=== PATIENT | male | born 1980 | race Two or more races ===

== ENCOUNTER 2019-11-06 05:11 | Observation (INO) | payer OTHER ==
[~2019-11-06] VITALS: Ht 167.6 cm; Wt 77.1 kg
[2019-11-06] VITALS (14 sets, daily range): BP systolic 99–142; BP diastolic 53–74
[2019-11-06] MEDS ORDERED: D5 1/2NS 1000ml IV ONE (05:12)
[2019-11-06] MEDS ORDERED: Tubing IV Secondary IV ONE (05:12)
[2019-11-06] MEDS ORDERED: NORCO 10-325 T1 EACH ORAL (05:55)
[2019-11-06] MEDS ORDERED: OMEPRAZOLE40 M1 ORAL (05:55)
[2019-11-06] MEDS ORDERED: Milk of Magnesia 30ml Ud ORAL PRN (06:15)
[2019-11-06] MEDS ORDERED: HYDROcodone/Acetamin 10/325 tab ORAL PRN (06:15)
[2019-11-06] MEDS ORDERED: Morphine Sulfate 4mg/ml Inj (IV USE ONLY) IM PRN (06:15)
[2019-11-06] MEDS ORDERED: DiphenhydrAMINE 25mg Tab ORAL PRN (06:15)
[2019-11-06] MEDS ORDERED: HYDROmorphone 1mg/ml Carpuject SUBQ PRN (06:15)
[2019-11-06] MEDS ORDERED: LR 1000ml 1,000 ML IVLG SCH (06:35)
[2019-11-06] MEDS ORDERED: Sodium Chloride 10ml vial INJ ONE (06:38)
[2019-11-06] MEDS ORDERED: Lidocaine 1% MPF 10mg/ml 5ml ONE (06:38)
[2019-11-06] MEDS ORDERED: Dexamethasone 4mg/ml vial ONE (06:38)
--- NOTE | 2019-11-06 06:38 | Anethesia Preoperative Eval ---
Anesthesia Pre-op PMH/ROS General Date of Evaluation: Nov 06, 2019 Time of Evaluation: 07:11 Anesthesiologist: Ashleigh ASA Score: ASA 2 Mallampati Score Class I : Soft palate, uvula, fauces, pillars visible Class II: Soft palate, uvula, fauces visible Class III: Soft palate, base of uvula visible Class IV: Only hard plate visible Mallampati Classification: Class II Surgeon: Juan Diagnosis: Neck Pain Surgical Procedure: ACDF C4-5, C5-6 Anesthesia History: none Family History: no anesthesia problems Allergies: Coded Allergies: No Known Allergies (Unverified , 11/06/19) Medications: see eMAR Patient NPO?: Yes NPO Date: Nov 05, 2019 NPO Time: 1900 Past Medical History Cardiovascular: Reports: HTN Gastrointestinal/Genitourinary: Reports: GERD Anesthesia Pre-op Phys. Exam Physician Exam Last Vital Signs Date Time Temp Pulse Resp B/P (MAP) Pulse Ox O2 Delivery O2 Flow Rate FiO2 11/06/19 06:03 Room Air 11/06/19 05:45 97.3 75 18 142/74 (96) 100 Constitutional: NAD Neurologic: CN 2-12 intact Cardiovascular: RRR Respiratory: CTA Gastrointestinal: S/NT/ND Airway Exam Mallampati Score: Class II MO: full ROM: full Teeth: intact Anesthesia Pre-op A/P Risk Assessment & Plan Assessment: ASA 2 Plan: GA, SED, GlideScope Go Status Change Before Surgery: No Pre-Antibiotics Dru Grams Ancef IV Given Within 1 Hr of Incision: Yes Time Given: 07:34 Christiano Sotelo MD Nov 06, 2019 06:38
[2019-11-06] MEDS ORDERED: fentaNYL 100 mcg/2 mL IV ONE ×2 (06:39→08:46)
[2019-11-06] MEDS ORDERED: Rocuronium Bromide 50mg/5ml Inj IV ONE (06:42)
[2019-11-06] MEDS ORDERED: Ketorolac 30mg Inj IV PRN ×2 (06:45)
[2019-11-06] MEDS ORDERED: HYDROcodone/Acetamin 5/325 tab ORAL PRN (06:45)
[2019-11-06] MEDS ORDERED: oxyCODONE HCL/Acetaminophen 5/325mg ORAL PRN (06:45)
[2019-11-06] MEDS ORDERED: LORazepam Inj 2mg/ml 1ml IV PRN (06:45)
[2019-11-06] MEDS ORDERED: Acetaminophen (Non formulary) 100 ML IV ONE (06:45)
[2019-11-06] MEDS ORDERED: fentaNYL 100 mcg/2 mL IV PRN (06:45)
[2019-11-06] MEDS ORDERED: HYDROcodone/Acetamin 7.5/325 tab ORAL PRN (06:45)
[2019-11-06] MEDS ORDERED: Hydromorphone 0.5mg/0.5ml inj IVP PRN (06:45)
[2019-11-06] MEDS ORDERED: Meperidine 25mg/0.5ml Inj (FOR RIGORS ONLY) IV PRN (06:45)
[2019-11-06] MEDS ORDERED: Atropine Sulfate 0.4mg/ml inj IVP PRN (06:45)
[2019-11-06] MEDS ORDERED: Midazolam 2mg/2ml Inj IVP PRN (06:45)
[2019-11-06] MEDS ORDERED: DiphenhydrAMINE 50mg/ml Inj IVP PRN (06:45)
[2019-11-06] MEDS ORDERED: Bacitracin 50000 Units Vial ONE (06:46)
[2019-11-06] MEDS ORDERED: Thrombin 5000 units TOPIC ONE (06:46)
[2019-11-06] MEDS ORDERED: Gelfoam Size TOPIC ONE (06:46)
[2019-11-06] MEDS ORDERED: ceFAZolin sod 1 GM in NS 55 ML IVPB ONE (07:00)
[2019-11-06] MEDS ORDERED: LR 1000ml ONE (07:00)
[2019-11-06] MEDS ORDERED: Dexamethasone 20mg/5ml IVP ONE (07:00)
[2019-11-06] MEDS ORDERED: Neostigmine 1mg/ml 10ml Inj ONE (07:00)
[2019-11-06] MEDS ORDERED: NS Irrig 1000ml ONE (07:00)
[2019-11-06] MEDS ORDERED: Propofol 1,000mg/ 100ml btl IV ONE (07:00)
[2019-11-06] MEDS ORDERED: Sterile Water Irrig 1000ml IRRIG ONE (07:00)
[2019-11-06] MEDS ORDERED: Ketamine 500mg/10ml vial ONE (07:01)
[2019-11-06] MEDS ORDERED: Lidocaine 1% Plain 30 ml INJ ONE ×2 (07:05→09:04)
--- NOTE | 2019-11-06 07:22 | Pre-Procedure Note/Attestation ---
Pre-Procedure Note/Attestation Complete Prior to Procedure Planned Procedure: not applicable Procedure Narrative: ADCF C4-C5, C5-C6 anterior plate Indications for Procedure Pre-Operative Diagnosis: trauma neck pain radiculopathy neurological deficit Attestation I attest that I discussed the nature of the procedure; its benefits; risks and complications; and alternatives (and the risks and benefits of such alternatives ), prior to the procedure, with the patient (or the patient's legal benefits representative). I attest that, if there was a reasonable possibility of needing a blood transfusion, the patient (or the patient's legal benefits representative) was given the [facility] standardized written summary, pursuant to the Trino Overlea Blood Safety Act ([place] Health and Safety Code # 1645, as amended). I attest that I re-evaluated the patient just prior to the surgery and that there has been no change in the patient's H&P, except as documented below: Cornelius Martinez MD Nov 06, 2019 07:22
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
--- NOTE | 2019-11-06 08:43 | Immediate Post-Op Evaluation ---
Immediate Post-Op Evalulation Immediate Post-Op Evalulation Procedure: ACDF C4-5, C5-6 Date of Evaluation: Nov 06, 2019 Time of Evaluation: 10:57 IV Fluids: 700 LR Blood Products: 0 Estimated Blood Loss: 100 Urinary Output: 0 Blood Pressure Systolic: 99 Blood Pressure Diastolic: 61 Pulse Rate: 67 Respiratory Rate: 16 O2 Sat by Pulse Oximetry: 100 Temperature (Fahrenheit): 97.1 Pain Score (1-10): 2 Nausea: No Vomiting: No Complications 0 Patient Status: awake, reacts, patent, extubated, none Hydration Status: adequate Dru Grams Ancef IV Given Within 1 Hr of Incision: Yes Time Given: 07:34 Christiano Sotelo MD Nov 06, 2019 08:43
[2019-11-06] MEDS ORDERED: Labetalol 5mg/ml 20ml vial IV ONE (08:48)
[2019-11-06] MEDS ORDERED: Glycopyrrolate 0.2mg/ml 1ml Vial ONE (10:09)
--- NOTE | 2019-11-06 12:10 | NUR ---
NURSE NOTES: Patient received from PACU to 312-1 via bed on O2 3LNC, no distress. Patient sleeping, awakens to name. Pain to surgical site 8/10, will review orders and medicate patient. Neck dressing CDI, ice pack in place. Neuros intact, skin warm, hand grasps/pedal pushes equal, strong 5/5, pulses palpable. IVF LR infusing to right hand, will change to order IVF. Bilateral SCDs on. Spouse at bedside. Oriented patient to room and call light. Provided clear liquids diet. Bed in lowest position, call light in reach, will continue to monitor.
[2019-11-06] MEDS ORDERED: D5 1/2NS 1,000 ML IV SCH (12:19)
[2019-11-06] MEDS ORDERED: Naloxone 0.4mg/ml Inj IVP PRN (12:19)
--- NOTE | 2019-11-06 12:30 | NUR ---
NURSE NOTES: IS provided, patient instructed on indication. Instructed patient to perform 10x/hr and splint anterior neck with small towel while using IS, verbalized understanding.
[2019-11-06] MEDS ORDERED: Tamsulosin 0.4mg cap ORAL SCH (14:00)
--- NOTE | 2019-11-06 14:29 | Diagnostic Imaging Report ---
INDICATION: Pain, intraoperative TECHNIQUE: Intraoperative imaging Fluoroscopy time: 15.2 seconds Total dose: 0.56365 mGym2 Total number of images: 4 COMPARISON: None FINDINGS: Intraoperative imaging demonstrates surgical tool projecting anterior to the C4-5 disc. Subsequent images document placement of anterior fusion hardware and disc spacers at C4-5 and C5-6. IMPRESSION: Intraoperative imaging, as described
--- NOTE | 2019-11-06 14:35 | NUR ---
PT EVALUATION NOTE Patient seen for initial evaluation. Patient presents with impaired functional mobility and decreased knowledge of cervical precautions s/p cervical surgery. Patient educated in cervical precautions and log roll technique for in/OOB. Patient able to perform bed mobility and transfers with supervision, no assistive device, using proper log roll technique. Patient able to ambulate 200 ft with supervision, no assistive device. Patient will benefit from skilled inpatient PT intervention to address functional mobility and compliance with cervical precautions. Anticipate discharge home once medically cleared by MD. No DME needs at this time. Addendum: 11/06/19 at 1502 by ELINA STALLINGS PT Amended: Links added.
[2019-11-06] MEDS: Chloraseptic Spray 20mL Bottle ORAL PRN ×2 (15:04→17:17)
[2019-11-06] MEDS ORDERED: ceFAZolin sod 1 GM in D5W 55 ML IV SCH (15:30)
--- NOTE | 2019-11-06 17:30 | Operative Note - Dictated ---
DATE OF OPERATION: 11/06/2019 SURGEON: Cornelius Martinez M.D. CHIEF PILOT: ALEM Hart. ANESTHESIOLOGIST: Christiano Sotelo M.D. ANESTHESIA: General with intubation. ADMITTING/PREOPERATIVE DIAGNOSIS: Posttraumatic herniated nucleus pulposus with discogenic neck pain and radiculopathy, neurologic deficit. POSTOPERATIVE DIAGNOSIS: Posttraumatic herniated nucleus pulposus with discogenic neck pain and radiculopathy, neurologic deficit. OPERATIVE PROCEDURE: 1. Anterior C4-C5, C5-C6 ACDF with anterior internal plate fixation. 2. Placement of osteopromotive material, placement of interbody titanium device with anterior internal fixation not interval to the interbody device. 3. SSEP monitoring. 4. High-powered magnification dissection. ESTIMATED BLOOD LOSS: Less than 50 mL. COMPLICATIONS: None. POSTOPERATIVE CONDITION: Good/stable. SPECIMEN: Disc fragments to pathology. DESCRIPTION OF PROCEDURE: The patient was brought to the operating room and in the supine position, general anesthesia with intubation was undertaken. IV antibiotics and IV Decadron were administered 30 minutes prior to incision time. Cross-table imaging was obtained with markers not penetrating the skin for determination of incision placement. Level was marked. Markers removed. Anterior cervical spine sterilely prepped and draped free in usual sterile fashion. A transverse left incision at the appropriate interval was sharply placed through the dermis and epidermis. Electrocautery dissection was carried through the subcutaneous tissue to the level of the platysmas muscle. It was identified, isolated, and transected in line with the incision. Blunt dissection was carried medial to the left sternocleidomastoid muscle and carotid sheath through the deep cervical pretracheal fascia to the midline between the right and left longus colli muscles. A needle was placed-needle bent at 90 degree angle (so as to avoid penetration greater than 3 mm into the disc space) and a cross-table image was obtained under sterile conditions, interpreted by surgeon demonstrating the correct level for further surgery. Level marked. Longus colli muscles with subperiosteal elevator over the appropriate intervals, retractors placed. C5-C6: Diskectomy was performed to but not through the posterior longitudinal ligament. Endplate denuding of cartilaginous caps with Midas Franklin bur dissection under high-power magnification. Trial utilization demonstrating the correct lordosis and height/width/depth. Titanium implant selected. Packed with autograft local and osteopromotive material. Tamped into position. Excellent alignment positioning by fluoroscopic guidance and direct observation. Attention was turned to the C4-C5 interval where an anterior annulotomy was performed followed diskectomy to but not through the posterior longitudinal ligament. Endplate denuding with Midas [place] bur dissection under high-power magnification. Trials as noted at C5-C6 utilized with appropriate dimensions determined. Graft filled with autograft and osteopromotive material impacted into correct interval. Of note is that the graft insertion devices have stops to avoid penetration past the anterior vertebral body cortical wall. Fluoroscopic imaging demonstrating excellent alignment in the AP and lateral planes. A 10 pounds of traction removed on the neck. Anterior internal plate fixation undertaken with bilateral screws C4, C5, and C6 in compressive fashion. Locked into position. AP and lateral fluoroscopic images undertaken and printed demonstrating excellent alignment position and correct levels. The patient is stable at all times. Wound irrigated with antibiotic-containing saline. Observation revealed no obvious excoriation or laceration of vital structures. FloSeal applied. Reapproximation of platysmas muscle, subcutaneous reapproximation of dermis and epidermis followed by surgical strips and sterile bandage maintained in place with tape. The patient was awakened and extubated in the operating room, and transported to postop recovery in good stable condition. Cornelius Martinez M.D. DR: JINA JOB#: [id number] CC:
--- NOTE | 2019-11-06 18:30 | NUR ---
NURSE NOTES: Discharge instructions reviewed with patient and spouse, verbalized understanding. IV heplock discontinued, no active bleeding. All belongings sent with patient. Anterior neck dressing remains CDI. Tolerated soft, regular diet, fair, no NV. Patient already has his pain medication filled at home. Patient sent down via WC with RN, in stable condition. Discharged home at 1830.
[2019-11-07 09:10] VITALS: BP 99/53
--- NOTE | 2019-11-07 09:10 | 48 Hour Post Anesthesia Eval ---
Post Anesthesia Evaluation Procedure: ACDF C4-5, C5-6 Date of Evaluation: Nov 06, 2019 Time of Evaluation: 14:30 Blood Pressure Systolic: 99 0: 53 Pulse Rate: 69 Respiratory Rate: 16 Temperature (Fahrenheit): 97.8 O2 Sat by Pulse Oximetry: 98 Airway: patent Nausea: No Vomiting: No Pain Intensity: 2 Hydration Status: adequate Cardiopulmonary Status: Stable Mental Status/LOC: patient returned to baseline Follow-up Care/Observations: 0 Post-Anesthesia Complications: 0 Follow-up care needed: ready to discharge Christiano Sotelo MD Nov 07, 2019 09:10
--- NOTE | 2019-11-08 17:05 | Brief Operative Note ---
Immediate Post Operative Note Operative Note Pre-op Diagnosis: trauma neck pain radiculopathy neurological deficit Procedure: ACDF C4-C5, C5-C6 Anterior plate fixation C4-5-6 SSEP High powered magnification disection Interbody Titanium Device Placement Interbody Bioactive material placement Post-op Diagnosis: same as pre-op Findings: consistent w/pre-op dx studies, other Surgeon: Juan Ph.D., M.D. Operational Risk Analyst: Tiffanie FERRARA Anesthesiologist: Ashleigh BURRIS Anesthesia: general Specimen: yes Complications: none Condition: stable Fluids: anesthesia Estimated Blood Loss: minimal Drains: none Implant(s) used?: Yes Cornelius Martinez MD Nov 08, 2019 17:05
--- NOTE | 2019-11-18 14:13 | Discharge Summary ---
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 Reason for Hospitalization: elective surgery HPI Daija Bradford is a 39 year old male who was admitted on Nov 06, 2019 at 05:12 for Discogenic Neck Pain Consultations Dr Moreno -pain specialist Procedures s/p 11/06/[address] Martinez 1. Anterior C4-C5, C5-C6 ACDF with anterior internal plate fixation. 2. Placement of osteopromotive material, placement of interbody titanium device with anterior internal fixation not interval to the interbody device. 3. SSEP monitoring. 4. High-powered magnification dissection. Hospital Course status post surgery course of recovery uneventful initially IV fluids s/p perioperative antibiotics neurovascular status closely monitored, remained stable incision with dressing ; clean dry and intact pain management was addressed pain specialist followed; pain was controlled remained hemodynamically stable ambulated with PT fall precautions maintained; safe for ambulation DVT prophylaxis provided use of incentive spirometry was encouraged while in the bed slowly started on soft diet Chloraseptic spray was on board a needed for throat discomfort able to tolerate soft diet , IV fluids discontinued GI prophylaxis provided antiemetics were on board as needed voided freely bowel regimen instituted patient was stable for discharge discharge instructions provided follow up with surgeon in the office as advised by surgeon FINAL DIAGNOSES Posttraumatic herniated nucleus pulposus with discogenic neck pain and radiculopathy, neurologic defici s/p Anterior C4-C5, C5-C6 ACDF with anterior internal plate fixation. Placement of osteopromotive material, placement of interbody titanium device with anterior internal fixation not interval to the interbody device. SSEP monitoring. High-powered magnification dissection. Discharge Medications Continued Medications: Hydrocodone Bit/Acetaminophen 10-325* ([place] 10-325*) 1 Each Tablet 1 TAB ORAL Q6H PRN for For Pain, #10 TAB 0 Refills (This prescription has been renewed) PRN PAIN Omeprazole (Omeprazole) 40 Mg Capsule. 40 MG ORAL DAILY for gerd, CAP (This prescription has been renewed) Discharge Condition Upon Discharge: stable Discharge Disposition Patient was discharged home Discharge Instructions Discharge Instructions Special Instructions I have been assigned to complete a D/C Summary on this account. I was not involved in the patient management Alyssia Allison ASSISTANT WRESTLING COACH Nov 18, 2019 14:13
== END 2019-11-06 18:30 | disposition home or self-care (01) ==
LOC: SUR 05:11 → EDBD 05:11 → 3E 05:12 → SUR 18:30
DX: M50.120 Mid-cervical disc disorder, unspecified level (principal); E66.3 Overweight; Z68.27 Body mass index [BMI] 27.0-27.9, adult; K21.9 Gastro-esophageal reflux disease without esophagitis; I10 Essential (primary) hypertension
CPT/HCPCS: 22554; 22585; 36415; 72040; 76000; 86850; 86900; 86901; 96360; 96365; 96372; 97116; 97161; 97530; C1713; G0378; J0131; J0690; J1100; J1170; J1885; J2001; J2250; J2405; J2704; J2710; J3010; J3490; J7120; 94003; 94150